=== PATIENT | male | born 1995 | race American Indian/Alaskan Native ===

== ENCOUNTER 2016-08-28 14:40 | Emergency (ER) | payer OTHER ==
[2016-08-28 15:27] VITALS: BP 115/58
[2016-08-28] MEDS ORDERED: MIRACLE MIXTURE PO ONE (18:00)
--- NOTE | 2016-08-28 18:23 | Emergency Department Report ---
ED ENT HPI - General Chief complaint: Sore Throat Stated complaint: SOMETHING STUCK IN THROAT Time Seen by Provider: 08/28/16 17:01 Source: patient Mode of arrival: Ambulatory Limitations: No Limitations - History of Present Illness Initial comments: patient states that he was eating fish yesterday and thinks that he swallowed a bone. Since that time, he has eaten bread and drank stuff to try and get it to go down. States that sometimes he will swallow and he doesn't notice it but other times he does. complaint: sore throat, foreign body -: Sudden, days(s) (1) Location: throat (left side of throat) Severity: moderate Quality: sharp Consistency: intermittent Improves with: none Worsens with: swallowing Associated Symptoms: pain with swallowing, sore throat. denies: fever, cough, gum swelling, toothache, tinnitus, hearing loss, discharge from ear, rhinorrhea - Related Data Previous Rx's Medication Instructions Recorded Last Taken Type Amoxicillin 500 mg PO TID #21 capsule 08/28/16 Unknown Rx Famotidine [Pepcid] 20 mg PO BID #20 tablet 08/28/16 Unknown Rx Allergies Allergy/AdvReac Type Severity Reaction Status Date / Time No Known Allergies Allergy Unverified 08/28/16 15:21 ED Dental HPI - General Chief complaint: Sore Throat Stated complaint: SOMETHING STUCK IN THROAT Time Seen by Provider: 08/28/16 17:01 Source: patient Mode of arrival: Ambulatory Limitations: No Limitations - Related Data Previous Rx's Medication Instructions Recorded Last Taken Type Amoxicillin 500 mg PO TID #21 capsule 08/28/16 Unknown Rx Famotidine [Pepcid] 20 mg PO BID #20 tablet 08/28/16 Unknown Rx Allergies Allergy/AdvReac Type Severity Reaction Status Date / Time No Known Allergies Allergy Unverified 08/28/16 15:21 ED Review of Systems ROS: Stated complaint: SOMETHING STUCK IN THROAT Other details as noted in HPI Constitutional: denies: chills, fever Eyes: denies: eye pain, eye discharge, vision change ENT: throat pain. denies: ear pain, hearing loss, epistaxis, congestion Respiratory: denies: cough, shortness of breath, wheezing Cardiovascular: denies: chest pain, palpitations Endocrine: no symptoms reported Gastrointestinal: denies: abdominal pain, nausea, vomiting, diarrhea Genitourinary: denies: urgency, dysuria Musculoskeletal: denies: back pain, joint swelling, arthralgia Skin: denies: rash, lesions Neurological: denies: headache, weakness, paresthesias Psychiatric: denies: anxiety, depression Hematological/Lymphatic: denies: easy bleeding, easy bruising ED Past Medical Hx - Past Medical History Previous Medical History?: No - Surgical History Past Surgical History?: No - Social History Smoking Status: Never Smoker Substance Use Type: Alcohol - Medications Home Medications: Home Medications Medication Instructions Recorded Confirmed Last Taken Type Amoxicillin 500 mg PO TID #21 capsule 08/28/16 Unknown Rx Famotidine [Pepcid] 20 mg PO BID #20 tablet 08/28/16 Unknown Rx ED Physical Exam - General Limitations: No Limitations General appearance: alert, in no apparent distress - Head Head exam: Present: atraumatic, normocephalic - Eye Eye exam: Present: normal appearance - ENT ENT exam: Present: normal exam, normal orophraynx, mucous membranes moist, TM's normal bilaterally, normal external ear exam - Neck Neck exam: Present: normal inspection, full ROM. Absent: tenderness, meningismus, lymphadenopathy, thyromegaly - Respiratory Respiratory exam: Present: normal lung sounds bilaterally. Absent: respiratory distress, wheezes, rales, rhonchi, accessory muscle use - Cardiovascular Cardiovascular Exam: Present: regular rate, normal rhythm. Absent: systolic murmur, diastolic murmur, rubs, gallop - GI/Abdominal GI/Abdominal exam: Present: soft, normal bowel sounds. Absent: distended, tenderness, guarding, rebound - Rectal Rectal exam: Present: deferred - Extremities Exam Extremities exam: Present: normal inspection - Back Exam Back exam: Present: normal inspection - Neurological Exam Neurological exam: Present: alert, oriented X3, CN II-XII intact - Psychiatric Psychiatric exam: Present: normal affect, normal mood - Skin Skin exam: Present: warm, dry, intact, normal color. Absent: rash ED Course Vital Signs 08/28/16 15:22 Temperature 98.2 F Pulse Rate 66 Respiratory 18 Rate Blood Pressure 115/58 O2 Sat by Pulse 100 Oximetry ED Medical Decision Making - Radiology Data Radiology results: image reviewed interpreted by me: NO FB identified - Medical Decision Making Images reviewed and discussed with patient. No FB noted. I believe that patient is probably feeling symptoms related to suspected abrasion to his pharynx. Patient was given GI cocktail in the ER with symptomatic relief. I will continue patient on some pepcid and refer to ENT/GI if symptoms fail to resolve. Patient tolerating liquid and solid foods without difficulty. He is non-toxic and hemodynamically stable. patient in agreement of treatment plan. Critical care attestation.: If time is entered above; I have spent that time in minutes in the direct care of this critically ill patient, excluding procedure time. ED Disposition Clinical Impression: Abrasion of pharynx Disposition: DISCHARGED TO HOME OR SELFCARE Is pt being admited?: No Does the pt Need Aspirin: No Condition: Good Instructions: Foreign Body in Pharynx (ED) Prescriptions: Amoxicillin 500 mg PO TID #21 capsule Famotidine [Pepcid] 20 mg PO BID #20 tablet Referrals: PRIMARY CARE, [Primary Care Provider] - 3-5 Days NELSON ADAIR MD [Staff Physician] - 3-5 Days ELIER CURRAN MD [Staff Physician] - 3-5 Days Time of Disposition: 18:27
--- NOTE | 2016-08-29 07:43 | XRay Report ---
AP AND LATERAL SOFT TISSUES OF THE NECK: History: Foreign body in throat. The contour of the upper airway appears within normal limits. The epiglottis is not enlarged. No prevertebral soft tissue swelling is apparent. No mass density or foreign body is evident. IMPRESSION: Normal study.
== END 2016-08-28 18:38 | disposition home or self-care (01) ==
LOC: ED 14:40
DX: S10.11XA Abrasion of throat, initial encounter (principal); X58.XXXA Exposure to other specified factors, initial encounter; Y93.89 Activity, other specified; Y99.9 Unspecified external cause status; Y92.89 Other specified places as the place of occurrence of the external cause
CPT/HCPCS: 70360

== ENCOUNTER 2019-05-24 02:28 | Emergency (ER) | payer OTHER ==
[2019-05-24] MEDS ORDERED: KETOROLAC 30 MG/1 ML INJ IV ONE (02:46)
[2019-05-24 03:07] VITALS: BP 154/89
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
== END 2019-05-24 04:31 | disposition home or self-care (01) ==
LOC: ED 02:28
DX: S06.0X1A Concussion with loss of consciousness of 30 minutes or less, initial encounter (principal); S16.1XXA Strain of muscle, fascia and tendon at neck level, initial encounter; Z79.899 Other long term (current) drug therapy; V49.49XA Driver injured in collision with other motor vehicles in traffic accident, initial encounter; Y93.89 Activity, other specified; Y92.410 Unspecified street and highway as the place of occurrence of the external cause; Y99.8 Other external cause status
CPT/HCPCS: 70450; 72125; 96374; 99284; J1885